=== PATIENT | female | born 1970 | race Caucasian/White ===

== ENCOUNTER 2017-06-29 09:07 | Outpatient (CLI) | payer OTHER ==
--- NOTE | 2017-06-29 11:44 | MRI ---
MRI RIGHT SHOULDER WITHOUT CONTRAST: Date: 06/29/17 HISTORY: M75.101, right rotator cuff tear. Fall 1 week ago. Pain. COMPARISON: None. FINDINGS: Biceps Tendon: Extraarticular biceps tendon is normal. There is a tear of the superior labrum extending into the bic eps tendon anchor. Glenoid Labrum: Superior and posterior superior labral tear. Tear does extend to the biceps labral anchor Rotator Cuff: There is a hidden interstitial tear of the supraspinatus tendon at the footplate measuring 4.0 mm in AP dimension with delamination along the myotendinous junction. Bones: There is lateral downsloping of the acromion. Moderate degenerative disease of acromioclavicular join t. Soft Tissues: Moderate subacromial/subdeltoid bursal effusion. IMPRESSION: 1. Superior and posterior superior labral tear. Tear extends to the biceps labral anchor. 2. Lateral downsloping acromion with bursal surface fraying of the supraspinatus and infraspinatus m yotendinous junctions. 3. 3.0 mm hidden interstitial tear of the mid fibers of supraspinatus tendon with delamination along the myotendinous junction. POS: [facility]
== END 2017-06-29 09:08 | disposition home or self-care (01) ==
LOC: MRI 09:07
PROVIDERS: ATTEND Orthopaedic Surgery
DX: M75.101 Unspecified rotator cuff tear or rupture of right shoulder, not specified as traumatic (principal); S43.491A Other sprain of right shoulder joint, initial encounter

== ENCOUNTER 2017-09-04 09:49 | Outpatient (CLI) | payer OTHER ==
[2017-09-04 11:10] LABS: Mean Corpuscular HGB CONC 33.7 g/dL (32.0-36.0); Mean Corpuscular Hemoglobin 32.7 pg (27.0-31.0); Mean Corpuscular Volume 96.8 fl (81.0-99.0); Mean Platelet Volume 7.5 fL (7.4-10.4); Platelet Count 342 thou/uL (130-400); RBC Distribution Width 11.4 % (11.5-14.5); Red Blood Cell (RBC) Count 3.99 mill/uL (4.20-5.40); White Blood Cell (WBC) Count 6.1 thou/uL (4.8-10.8)
== END 2017-09-04 09:50 | disposition home or self-care (01) ==
LOC: LABBT 09:49
PROVIDERS: ATTEND Orthopaedic Surgery
DX: Z01.812 Encounter for preprocedural laboratory examination (principal); M75.111 Incomplete rotator cuff tear or rupture of right shoulder, not specified as traumatic
CPT/HCPCS: 85027

== ENCOUNTER 2017-09-07 13:16 | Day surgery (SDC) | payer OTHER ==
[2017-09-04 10:14] VITALS: BMI 19.9
[~2017-09-07 13:16] MED LIST: Bupivacaine 0.25% HCL 30 ML VIAL ONE; Bupivacaine PF 0.5% 30 ML VIAL ONE; Dexamethasone 20 MG/5 ML VIAL ONE; Glycopyrrolate 0.2 MG/ML 5 ML SYRINGE ONE; Lidocaine 1% PF 5 ML VIAL ONE; PHENYLEPHRINE-NS 100 MCG/ML 10 ML SYRINGE ONE; PROPOFOL 200 MG/20 ML VIAL ONE; diphenhydrAMINE 50 MG/ML VIAL ONE
[2017-09-07] MEDS ORDERED: Midazolam HCl 2 mg/2 ml Vial ONE (13:35)
[2017-09-07] MEDS ORDERED: Fentanyl 100 MCG/2 ML VIAL ONE ×4 (13:35→19:46)
[2017-09-07] MEDS ORDERED: Lidocaine 1% (PF) 30 ML VIAL ONE (13:36)
[2017-09-07] MEDS ORDERED: CEFAZOLIN/Water 2 GM/20 ML SYRINGE ONE (15:08)
[2017-09-07] MEDS ORDERED: Scopolamine 1.5 mg/72 hour Patch ONE (15:40)
[2017-09-07] MEDS ORDERED: Bupivacaine HCl 0.5%/Epinephrine 1:200,000/PF 30 ml Vial ONE (16:19)
[2017-09-07] MEDS ORDERED: Ropivacaine 0.2% 550 ML 550 ML NERVE BLCK SCH (18:44)
[2017-09-07] MEDS ORDERED: Ketorolac Tromethamine 30 MG/ML VIAL IVP PRN (18:44)
[2017-09-07] MEDS ORDERED: Fentanyl 100 MCG/2 ML VIAL IV PRN (18:44)
[2017-09-07] MEDS ORDERED: traMADol HCl 50 MG TAB PO PRN ×2 (18:44)
[2017-09-07] MEDS ORDERED: Ondansetron HCl/PF 4 MG/2 ML Vial IVP PRN (18:44)
[2017-09-07] MEDS ORDERED: Zolpidem Tartrate 5 MG TAB PO PRN (18:44)
[2017-09-07] MEDS ORDERED: HYDROcodone/Acetaminophen 10/325 mg Tablet PO PRN ×2 (18:44)
[2017-09-07] MEDS ORDERED: Promethazine HCl 25 MG/ML VIAL IM PRN (18:44)
[2017-09-07] MEDS ORDERED: Promethazine HCl 25 MG/ML VIAL ONE (19:33)
[2017-09-07] MEDS ORDERED: Ondansetron ODT 4 MG TAB ONE (20:04)
--- NOTE | 2017-09-08 01:49 | OP ---
DATE OF OPERATION: 09/07/2017 OPERATIONS: Right shoulder subacromial decompression, biceps tenodesis, rotator cuff repair, labral debridement. PREOPERATIVE DIAGNOSES: Right shoulder subacromial impingement, rotator cuff tear, biceps tendinitis , superior labral tear. POSTOPERATIVE DIAGNOSES: Right shoulder subacromial impingement, rotator cuff tear, biceps tendiniti s, superior labral tear. COMPLICATIONS: None. ESTIMATED BLOOD LOSS: Minimal. SURGEON: Surjit Barnhart MD INDICATIONS: Ms. Cazares is a 47-year-old female who injured her shoulder. She sustained a labral tea r, rotator cuff tear, as well as a subacromial impingement. She has failed conservative treatment. MRI has confirmed these findings. She has been indicated for arthroscopic versus open shoulder surge ry to restore anatomic position of the rotator cuff as well as relief pain and promote full function. Risks have been reviewed in detail which do include infection, pain, scarring, nerve or vascular in jury, failure of healing and others. IMPLANTS: [employer] Bio-Tenodesis screw and two SwiveLock anchors were used from [employer]. DESCRIPTION OF PROCEDURE: Ms. Cazares is a 47-year-old female who was identified in the [facility] area. Her correct extremity was marked. She was carried to the operating room. She was posi tioned supine. General anesthesia was induced. A regional block had been placed. She was converted to the beach chair position. At this point, we began the procedure after prepping and draping the r ight upper extremity. An arthroscope was inserted from the posterior aspect of the shoulder. We exa mined the intraarticular joint. We encountered the biceps tendon, which was attached at a labral tea r. The labrum was detached from the superior glenoid. There was a split in the biceps tendon. We g ently debrided the labrum with a shaver as well as cautery device back to a stable base of tissue. Caroline diaz then used arthroscopic scissors to transect the biceps tendon at its anchor. At this point, the te ndon was delivered through an anterolateral portal. We whipstitched the biceps tendon. We then dril led a 25-mm hole with a 7-mm reamer in the footprint of the intertubercular groove. We then docked t he biceps tendon into this groove using appropriate Bio-Tenodesis screw fixation. At this point, we examined the rotator cuff. There was a 95% thickness rotator cuff tear with only a few strandy fibers attached. These were cut and debrided. We prepared the footprint of the rotator cuff. We then moved to the subacromial space. A thorough subacromial decompression was performed. We used a shaver and cautery device. We debrided the bursal tissue to the subacromial surface as we ll as the rotator cuff surface. We then used a high-speed bur to perform an acromioplasty using cutt ing block technique from anterior to posterior. All osteophytes were removed. Finally, we proceeded with a rotator cuff repair. A small, mini-open incision was made, dissecting down to the deltoid fa scia which was split. This allowed us exposure into the acromial space. We finished subacromial dec ompression in an open fashion. We then placed a medial-row anchor in the footprint of her rotator cu ff inserting this under direct visualization. We passed two FiberTape sutures through the rotator cu ff. These were brought down over to a lateral anchor which also was inserted under direct visualizat ion. This provided a firm and stable repair. At this point, we used a FiberWire suture to close the rotator interval, which was open for a biceps tenodesis. We finally thoroughly irrigated with copious lavage. We then closed our deltoid fascia w ith #1 Vicryl suture followed by 2-0 Vicryl suture and Monocryl for the skin. A sterile dressing was applied. The patient was taken to the recovery room in good condition without complication.
== END 2017-09-07 20:45 | disposition home or self-care (01) ==
LOC: SDC 13:16
PROVIDERS: ATTEND Orthopaedic Surgery
PROC: 0LQ14ZZ Repair Right Shoulder Tendon, Percutaneous Endoscopic Approach (ICD-10-PCS; principal; 2017-09-07)
PROC: 0RNJ4ZZ Release Right Shoulder Joint, Percutaneous Endoscopic Approach (ICD-10-PCS; principal; 2017-09-07)
PROC: 0LS14ZZ Reposition Right Shoulder Tendon, Percutaneous Endoscopic Approach (ICD-10-PCS; principal; 2017-09-07)
PROC: 0MM14ZZ Reattachment of Right Shoulder Bursa and Ligament, Percutaneous Endoscopic Approach (ICD-10-PCS; principal; 2017-09-07)
DX: M75.41 Impingement syndrome of right shoulder (principal); M75.111 Incomplete rotator cuff tear or rupture of right shoulder, not specified as traumatic; S43.431A Superior glenoid labrum lesion of right shoulder, initial encounter; M75.21 Bicipital tendinitis, right shoulder; D50.9 Iron deficiency anemia, unspecified; K21.9 Gastro-esophageal reflux disease without esophagitis; F90.9 Attention-deficit hyperactivity disorder, unspecified type; F41.9 Anxiety disorder, unspecified; E03.9 Hypothyroidism, unspecified; K91.5 Postcholecystectomy syndrome; Z79.899 Other long term (current) drug therapy
CPT/HCPCS: 96374; A4306; C1713; J0670; J1100; J1200; J2001; J2250; J2550; J2704; J2795; J3010; Q0162; S0020

== ENCOUNTER 2017-11-18 10:09 | Outpatient (CLI) | payer OTHER | END 2017-11-18 10:10 | disposition home or self-care (01) | LOC: BICMAMMO 10:09 | PROVIDERS: ATTEND Obstetrics & Gynecology | DX: Z12.31 Encounter for screening mammogram for malignant neoplasm of breast (principal) | CPT/HCPCS: 77063; 77067 ==

== ENCOUNTER 2018-04-13 07:34 | Outpatient (CLI) | payer OTHER ==
--- NOTE | 2018-04-13 10:45 | MRI ---
MRI RIGHT SHOULDER WITHOUT CONTRAST: Date: 04/13/18 HISTORY: M75.121 complete tear of rotator cuff. COMPARISON: MRI dated 06/29/17. FINDINGS: Biceps Tendon: Recent biceps tenodesis. Labrum: Similar appearance of the posterior superior labral tear. Rotator Cuff: Prior rotator cuff repair, although the craniad most suture anchor at the posterior supraspinatus ten don fibers is proud of the cortex nearly 4.0 mm. This tendon appears to be bent at the humeral head c ortex and may be under too much tension. There is mild tendinosis of the supraspinatus and infraspinatus tendons with low grade undersurface f raying and bursal surface fraying. Bones: Prior acromioplasty and subacromial decompression. Muscles: The muscle signal and bulk is normal. IMPRESSION: 1. The craniad most tendon suture anchor at the posterior supraspinatus tendon appears to be under t ension and is proud of the cortex 4.0 mm and angled medially. 2. Prior subacromial decompression, adequate subacromial space. 3. Mild tendinosis and undersurface fraying of supraspinatus and infraspinatus tendons. 4. No new tear of the rotator cuff. 5. Similar appearance to the posterior superior labral tear. POS: [facility]
== END 2018-04-13 07:35 | disposition home or self-care (01) ==
LOC: BICMRI 07:34
PROVIDERS: ATTEND Orthopaedic Surgery
DX: M75.121 Complete rotator cuff tear or rupture of right shoulder, not specified as traumatic (principal); M75.81 Other shoulder lesions, right shoulder; Z98.890 Other specified postprocedural states

== ENCOUNTER 2018-11-11 15:06 | Outpatient (CLI) | payer OTHER ==
--- NOTE | 2018-11-11 17:17 | RAD ---
TOES LEFT FOOT: Fifth toe evaluated with 3 views. INDICATION: Left 5th toe pain. FINDINGS: No evidence of fracture or dislocation. The MTP and IP joints are unremarkable. IMPRESSION: No acute abnormality identified. POS: [facility]
== END 2018-11-11 15:07 | disposition home or self-care (01) ==
LOC: SCSRAD 15:06
PROVIDERS: ATTEND Family Medicine
DX: M79.675 Pain in left toe(s) (principal)

== ENCOUNTER 2018-11-29 13:25 | Outpatient (CLI) | payer OTHER ==
--- NOTE | 2018-11-29 13:48 | MMO ---
Bilateral MAMMO Bilat Screen [facility]. CLINICAL HISTORY: Patient is 48 years old and is seen for screening. The patient has no family history of breast cancer. The patient has no personal history of cancer. VIEWS: The views performed were: bilateral craniocaudal with tomosynthesis and bilateral mediolateral oblique with tomosynthesis. FILMS COMPARED: The present examination has been compared to a prior imaging study performed at [facility] on 11/18/2017. MAMMOGRAM FINDINGS: There are scattered fibroglandular densities. There are no suspicious masses, suspicious calcifications, or new areas of architectural distortion. IMPRESSION: THERE IS NO MAMMOGRAPHIC EVIDENCE OF MALIGNANCY. A ROUTINE FOLLOW-UP MAMMOGRAM IN 1 YEAR IS RECOMMENDED. THE RESULTS OF THIS EXAM WERE SENT TO THE PATIENT. ACR BI-RADS Category 1 - Negative MAMMOGRAPHY NOTE: 1. A negative mammogram report should not delay a biopsy if a dominant of clinically suspicious mass is present. 2. Approximately 10% to 15% of breast cancers are not detected by mammography. 3. Adenosis and dense breasts may obscure an underlying neoplasm. Reported by: Carla GENAO Electonically Signed: [id number]
== END 2018-11-29 13:26 | disposition home or self-care (01) ==
LOC: BICMAMMO 13:25
PROVIDERS: ATTEND Obstetrics & Gynecology
DX: Z12.31 Encounter for screening mammogram for malignant neoplasm of breast (principal)
CPT/HCPCS: 77063; 77067

== ENCOUNTER 2019-12-05 10:44 | Outpatient (CLI) | payer OTHER ==
--- NOTE | 2019-12-05 11:45 | MMO ---
Bilateral MAMMO Bilat Screen [facility]. CLINICAL HISTORY: Patient is 49 years old and is seen for screening. The patient has no family history of breast cancer. The patient has no personal history of cancer. VIEWS: The views performed were: bilateral craniocaudal with tomosynthesis and bilateral mediolateral oblique with tomosynthesis. FILMS COMPARED: The present examination has been compared to prior imaging studies performed at [facility] on 11/18/2017 and 11/29/2018. This study has been interpreted with the assistance of computer-aided detection. MAMMOGRAM FINDINGS: There are scattered fibroglandular densities. There are stable benign appearing calcifications seen in both breasts. There are no suspicious masses, suspicious calcifications, or new areas of architectural distortion. IMPRESSION: THERE IS NO MAMMOGRAPHIC EVIDENCE OF MALIGNANCY. A ROUTINE FOLLOW-UP MAMMOGRAM IN 1 YEAR IS RECOMMENDED. THE RESULTS OF THIS EXAM WERE SENT TO THE PATIENT. ACR BI-RADS Category 2 - Benign finding MAMMOGRAPHY NOTE: 1. A negative mammogram report should not delay a biopsy if a dominant of clinically suspicious mass is present. 2. Approximately 10% to 15% of breast cancers are not detected by mammography. 3. Adenosis and dense breasts may obscure an underlying neoplasm. Reported by: MINNIE SALAZAR MD Electonically Signed: [id number]
== END 2019-12-05 10:45 | disposition home or self-care (01) ==
LOC: BICMAMMO 10:44
PROVIDERS: ATTEND Obstetrics & Gynecology
DX: Z12.31 Encounter for screening mammogram for malignant neoplasm of breast (principal)
CPT/HCPCS: 77063; 77067

== ENCOUNTER 2021-03-20 13:05 | Outpatient (CLI) | payer OTHER | END 2021-03-20 13:06 | disposition home or self-care (01) | LOC: BICMAMMO 13:05 | PROVIDERS: ATTEND Obstetrics & Gynecology | DX: Z12.31 Encounter for screening mammogram for malignant neoplasm of breast (principal) | CPT/HCPCS: 77063; 77067 ==

== ENCOUNTER 2022-04-10 13:53 | Outpatient (CLI) | payer BC | END 2022-04-10 13:54 | disposition home or self-care (01) | LOC: BICMAMMO 13:53 | PROVIDERS: ATTEND Obstetrics & Gynecology | DX: Z12.31 Encounter for screening mammogram for malignant neoplasm of breast (principal) | CPT/HCPCS: 77063; 77067 ==

== ENCOUNTER 2023-05-05 11:09 | Outpatient (CLI) | payer BC | END 2023-05-05 11:10 | disposition home or self-care (01) | LOC: BICMAMMO 11:09 | PROVIDERS: ATTEND Obstetrics & Gynecology | DX: Z12.31 Encounter for screening mammogram for malignant neoplasm of breast (principal) | CPT/HCPCS: 77063; 77067 ==

== ENCOUNTER 2024-05-13 15:05 | Outpatient (CLI) | payer BC | END 2024-05-13 15:06 | disposition home or self-care (01) | LOC: BICMAMMO 15:05 | PROVIDERS: ATTEND Obstetrics & Gynecology | DX: Z12.31 Encounter for screening mammogram for malignant neoplasm of breast (principal) | CPT/HCPCS: 77063; 77067 ==